=== PATIENT | male | born 1990 | race Caucasian/White ===

== ENCOUNTER 2018-06-15 05:44 | Emergency (ER) | payer MEDICAID ==
[~2018-06-15] VITALS: Ht 170.2 cm; Wt 86.2 kg
[2018-06-15 05:51] VITALS: Ht 170.2 cm; Wt 86.2 kg
[2018-06-15 08:13] VITALS: BP 132/87
== END 2018-06-15 08:13 | disposition home or self-care (01) ==
LOC: ED 05:44
DX: S09.90XA Unspecified injury of head, initial encounter (principal); S16.1XXA Strain of muscle, fascia and tendon at neck level, initial encounter; V43.52XA Car driver injured in collision with other type car in traffic accident, initial encounter; Y93.I9 Activity, other involving external motion; Y92.488 Other paved roadways as the place of occurrence of the external cause; Y99.8 Other external cause status